=== PATIENT | female | born 2000 | race Caucasian/White ===

== ENCOUNTER 2022-11-28 11:25 | Emergency (ER) | payer BC, SELFPAY ==
[2022-11-28 11:37] VITALS: BP 118/75; PULSE 87; RESP 16; TEMP 37; O2SAT 100
--- NOTE | 2022-11-28 12:06 | ED.GENADULT ---
HPI - General Adult General Chief complaint: Upper Respiratory Infection Stated complaint: cough, congestion, lt ear pain Source: patient Mode of arrival: ambulatory Limitations: no limitations History of Present Illness HPI narrative: Patient presents for evaluation of sinus symptoms for last 4 weeks. Symptoms include sinus congestion, sinus drainage, bilateral ear pressure. No fever, chills, nausea, vomiting, cough, shortness of breath, sore throat. 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 She is taking Advil cold and Sinus without considerable improvement in her symptoms or after. She does not smoke. No history of COVID. She took a home COVID test which was negative. No additional complaints or concerns. Related Data Allergies Allergy/AdvReac Type Severity Reaction Status Date / Time codeine Allergy Unknown Nausea Verified 11/28/22 11:41 Review of Systems Review of Systems: CONSTITUTIONAL: Denies fever, chills, or sweats. EYES: Denies visual changes, redness, or discharge. ENT: Reports sinus congestion, nasal drainage, and pressure in her ears. CARDIOVASCULAR: Denies chest pain, palpitations, or edema. RESPIRATORY: Denies cough or dyspnea. GASTROINTESTINAL: Denies abdominal pain, nausea, vomiting, or diarrhea. GENITOURINARY: Denies dysuria or hematuria. SKIN: Denies rash or itching. MUSCULOSKELETAL: Denies back pain, joint pain, or myalgia. NEUROLOGIC: Denies headache, numbness, dizziness, or weakness. PSYCHIATRIC: Denies anxiety or depression. [facility] Past Medical History Medical History No pertinent past medical history Surgical History Surgical History No pertinent past surgical history Family History Family History Mother Family history non-contributory Social History Social History Smoking status: Never smoker Substance use: never Additional living arrangements comments: lives with boyfriend Gender identity (if verbalized by the patient): Female Sexual Orientation (if Verbalized by the Patient): Straight or Heterosexual Spiritual care concerns: No Exam Narrative: GENERAL: Well-appearing, well-nourished, and in no acute distress. HEAD: Normocephalic, atraumatic. EYES: PERRLA and EOMI. ENT: Nares clear, no rhinorrhea or epistaxis. Mucous membranes moist. Oropharynx without tonsillar hypertrophy exudate or other lesions. Bilateral TMs pearly mahoney nonbulging. Bilateral frontal maxillary sinus tenderness. NECK: Supple. No adenopathy or masses. No carotid bruits or JVD CHEST: Clear to auscultation. No respiratory distress. No wheezes rales or rhonchi HEART: Regular rate and rhythm. No murmur heard. Normal peripheral pulses. ABDOMEN: Soft, nontender, nondistended, normal active bowel sounds. EXTREMITIES: Normal range of motion. No edema. SKIN: Warm, dry, no rash. NEURO: No focal deficits. Alert and oriented x3. PSYCH: Normal mood and affect. Course Course Emergency Course: This is a 22-year-old female who presented for evaluation of sinus symptoms for last 4 weeks. She meets criteria for ABRS based on symptom duration. She declined COVID flu testing. I think this is reasonable. Will treat her with Augmentin. Increase hydration. Follow up with primary provider. Go to the ER for worsening symptoms. Patient in agreement with care Level of Care: Express Care Visit Vital Signs Vital signs: Vital Signs Temperature 37.0 C 11/28/22 11:37 Pulse Rate 87 11/28/22 11:37 Respiratory Rate 16 11/28/22 11:37 Blood Pressure 118/75 11/28/22 11:37 Pulse Oximetry 100 11/28/22 11:37 Temperature 37.0 C 11/28/22 11:37 Pulse Rate 87 11/28/22 11:37 Respiratory Rate 16 11/28/22 11:37 Blood Pres
== END 2022-11-28 12:11 | disposition home or self-care (01) ==
PROVIDERS: Emergency Provider Nurse Practitioner
DX: J32.9 Chronic sinusitis, unspecified (principal)
CPT/HCPCS: 99203; G0463